=== PATIENT | female | born 1970 | race Caucasian/White ===

== ENCOUNTER 2017-05-28 22:08 | Emergency (ER) | payer BC ==
[~2017-05-28] VITALS: Ht 172.7 cm; Wt 81.6 kg
[2017-05-28 22:08] VITALS: BP_SYST 134
[2017-05-28] MEDS ORDERED: DIPHENHYDRAMINE INJ 50 MG/ML VIAL ONE (23:13)
[2017-05-28] MEDS ORDERED: DIPHENHYDRAMINE INJ 50 MG/ML VIAL IM ONE (23:15)
[2017-05-29 00:09] VITALS: BP_SYST 141
== END 2017-05-29 01:30 | disposition left against medical advice (07) ==
LOC: SED 22:08
DX: R22.0 Localized swelling, mass and lump, head (principal); F41.0 Panic disorder [episodic paroxysmal anxiety]; R06.82 Tachypnea, not elsewhere classified; Z53.21 Procedure and treatment not carried out due to patient leaving prior to being seen by health care provider
CPT/HCPCS: 36415; 86710; 96372; 99281; J1200